=== PATIENT | male | born 1995 | race African-American/Black ===

== ENCOUNTER 2024-11-04 14:13 | Emergency (ER) | payer MEDICAID ==
[~2024-11-04] VITALS: Ht 172.7 cm; Wt 90.0 kg
[2024-11-04 14:16] VITALS: BP 168/87; PULSE 91; RESP 16; TEMP 36.9; O2SAT 99
[2024-11-04 14:54] LABS: BASOPHILS % 0.6 % (0.0-2.0); DIFFERENTIAL COMMENT 0; EOSINOPHILS % 0.7 % (0.0-5.0); HEMOGLOBIN. 14.9 g/dL (14.0-18.0); MEAN CORPUSCULAR HEMOGLOBIN 23.1 pg (28.0-32.0); MEAN CORPUSCULAR HGB CONC 31.1 g/dL (31.0-37.0); MEAN CORPUSCULAR VOLUME 74.4 fL (80.0-94.0); MEAN PLATELET VOLUME 8.7 fl (7.4-10.4); MONOCYTES % 7.5 % (2.0-8.0); NEUTROPHILS % 75.2 % (40.0-76.0); PLATELET 254 x1000/uL (130-400); RED BLOOD CELL COUNT 6.45 mill/uL (4.7-6.1); RED CELL DISTRIBUTION WIDTH 13.6 % (11.6-14.6); WHITE BLOOD COUNT 10.6 x1000/uL (4.5-11.0)
[2024-11-04 14:57] LABS: CHLORIDE 102 mEq/L (98-107); POTASSIUM 4.3 mEq/L (3.5-5.1); SODIUM 139 mEq/L (136-145)
[2024-11-04 14:58] LABS: CALCIUM 9.6 mg/dL (8.7-10.4); CARBON DIOXIDE 29 mEq/L (21-32)
[2024-11-04 15:03] LABS: CREATININE 1.1 mg/dL (0.6-1.3); GLUCOSE 109 mg/dL (70-105); UREA NITROGEN BLOOD 11 mg/dL (9-23)
[2024-11-04] MEDS ORDERED: DIPHENHYDRAMINE 25MG CAPSULE PO ONE (17:30)
[2024-11-04] MEDS ORDERED: PROT40 MT (18:30)
[2024-11-04] MEDS ORDERED: IOHEXOL-300 100 ML BOTTLE ONE (23:21)
== END 2024-11-04 18:40 | disposition home or self-care (01) ==
LOC: ER 14:13
DX: K29.70 Gastritis, unspecified, without bleeding (principal); Z79.899 Other long term (current) drug therapy
CPT/HCPCS: 99285; 74177; 80048; 85025; 36415; Q9967